=== PATIENT | female | born 1955 | race Caucasian/White ===

== ENCOUNTER 2018-05-09 19:38 | Emergency (ER) | payer BC, SELFPAY ==
[2018-05-09 19:49] VITALS: PULSE 59; RESP 16; TEMP 38.6; O2SAT 96
--- NOTE | 2018-05-09 20:04 | W.ED.GENAD ---
Discharge Plan Disposition Patient Disposition: HOME Condition: Fair Discharge Details Chief Complaint: Cellulitis Clinical Impression: Cellulitis Primary Care Provider: Kalpesh Shelby ED Provider: Chinyere Radford Home Meds and New Rx's Prescriptions: New cephalexin [Keflex] 500 mg capsule 500 mg PO QID Qty: 40 RF: 0 Continue omega-3 fatty acids 1,000 MG capsule 1,000 mg PO DAILY RF: 0 [id number] C-Mn [Glucosamine-Chondroitin Complx] 1 EACH tablet 1 ea PO DAILY RF: 0 magnesium amino acid chelate 100 MG tablet 100 mg PO RF: 0 acetaminophen [Mapap Extra Strength] 500 MG tablet 1,000 mg PO Q8H PRNRF: 0 ibuprofen 600 MG tablet 600 mg PO TID PRN PRNRF: 0 Discharge Instructions Instructions: Cellulitis (ED) Additional Instructions: Encourage hydration. Tylenol and/or ibuprofen as needed for fever or discomfort. Please take Keflex as prescribed. We will contact you with any pertinent results from pending cultures. Please follow-up with interventional radiology on Friday to discuss current situation and follow-up. Please keep upcoming follow-up appointment. If you develop increased pain, redness, change in discharge, pain with walking, or other new/worsening symptoms please seek care urgently once again Referrals: Kalpesh Shelby MD [Primary Care Provider] - Discharge Data Discharge Date/Time-TO BE ENTERED AT DEPARTURE: 05/09/18 23:19 Medical Decision Making Patient is 62-year-old female, accompanied by her , with chief complaint of fever and left lateral leg pain. Patient was in an accident a few months ago by a try a degloving of the muscle. Since that time she has had drain in place by interventional radiology and along the lateral aspect of the left thigh. States that this has been changed weekly, this was kept last week as they are hoping for removal of the bulb soon. She reports they have been instilling the wound with doxycycline and effort to help adhesions form. States she did have one infection which time she was treated with oral Keflex. That was approximately 4 weeks ago. States she been feeling well until around 1600 today at which time she began feeling feverish and it began noting increased discomfort along the lateral aspect of the thigh. On exam, no erythema is noted. However, patient does have warmth over the lateral thigh where she reports she had increased tenderness this afternoon. Does have area of swelling which she reports is typical. It does not feel fluctuant, rather feels like soft tissue swelling. She has full range of motion of the hip. No pain with axial loading rotational movements of the hip. Pain seems fairly superficial and is really only elicited with palpation. She is ambulating well with no signs of discomfort, no antalgic gait. Plan to obtain laboratory evaluation including blood cultures and lactate. Will consult with interventional radiology regarding patient's history and recommendations. Patient will be given Tylenol and will hydrate the patient. Laboratory evaluation without significant abnormality. No leukocytosis. Lactate is normal. Cultures are pending. Consulted with Dr. Dimas Crook with IR at [facility] [place] He Advised the cultures have not been performed historically. He did advise the patient being placed on Keflex once again, felt this worked well for the patient previously. They report that the doxycycline is now for antibiotic use would rather help with closure of her Cavity. He did recommend culturing the fluid from the drain. Discussed the laboratory findings as well as the recommendations by interventional radiology. Reassess the patient's fever, she is noted to be 38.4. We will augment the Tylenol with ibuprofen. Will begin the patient on Keflex. She is received 1 L of fluids here After receiving oral ibuprofen, patient is feeling much improved. She is no longer covered with blankets, is walking about the department. Recheck patient's temperature, she is currently 36.6 Reports she is feeling much improved. She continues to endorse some fatigue but states that she no longer feels feverish. Culture was sent from the drain. Patient received first dose of Keflex here. She will go home with some as the pharmacies are currently closed. Will be given a prescription for the remainder. Advise follow-up with interventional radiology this week, patient Rocael has an appointment. However, she will call department Friday to check in and discuss current symptoms. She was given strict return precautions. We will contact her with culture results as needed. All of her questions and concerns were addressed and she is in agreement with this plan. HPI General Mode of arrival: ambulatory. Date/Time Provider Initiated Documentation: 05/09/18 20:04. Limitations to Documentation: no limitations. Information obtained by: patient and family. History of Present Illness 62 year old F presents to the emergency department with the chief complaint of left lateral hip pain, described as mild, with intensity rated at 2. Quality is described as aching, and is localized to the left and lower extremity. Patient reports no radiation. Patient started experiencing this hour(s) (began at 1600 today) and it has been constant. Immobilization improves symptom(s), Movement worsens symptoms . Patient notes fever/chills and loss of appetite; denies chest pain, cough, diaphoresis, nausea/vomiting, rash and shortness of breath. Patient did receive the following treatments prior to arrival, none Related Data Home Medications Medication Instructions Recorded Confirmed [id number] C-Mn 1 ea PO DAILY 09/29/13 05/09/18 [Glucosamine-Chondroitin Complx] omega-3 fatty acids 1,000 mg PO DAILY 09/29/13 05/09/18 acetaminophen [Mapap Extra 1,000 mg PO Q8H PRN tab 01/12/18 05/09/18 Strength] ibuprofen 600 mg PO TID PRN PRN tab 01/12/18 05/09/18 magnesium amino acid chelate 100 mg PO 01/21/18 cephalexin [Keflex] 500 mg PO QID #40 cap 05/09/18 Previous Rx's Medication Instructions Recorded acetaminophen [Mapap Extra 1,000 mg PO Q8H PRN tab 01/12/18 Strength] ibuprofen 600 mg PO TID PRN PRN tab 01/12/18 cephalexin [Keflex] 500 mg PO QID #40 cap 05/09/18 Allergies Allergy/AdvReac Type Severity Reaction Status Date / Time ragweed pollen Allergy Unknown Unverified 05/09/18 19:59 General Stated Complaint: Cellulitis PABLO: 3 Review of Systems Constitutional Reports as per HPI, Reports chills, Reports fever(s), Denies headache(s) and Reports poor appetite ENT Denies abnormal hearing, Denies otalgia, Denies headache(s), Denies hoarseness, Denies nasal congestion, Denies sinus pain, Denies sinus pressure and Denies sore throat Cardiovascular Reports as per HPI, Denies chest pain, Denies dyspnea and Denies dyspnea on exertion Respiratory Reports as per HPI, Denies cough, Denies dyspnea and Denies dyspnea on exertion Gastrointestinal Reports as per HPI, Denies abdominal pain, Denies change in stool character, Denies nausea and Denies vomiting Musculoskeletal Reports as per HPI and Denies abnormal gait Integumentary/Breasts Reports as per HPI Neurologic Denies abnormal hearing, Denies abnormal movements, Denies abnormal gait and Denies headache(s) PFSH Family History Mother Asthma Father Heart disease Other Diabetes Personal history of malignant neoplasm Medical History basal cells of skin Social History Smoking/Tobacco Use Status: Never Surgical History Colonoscopy Colonoscopy - MAC (12/05/17) Exam Const General: cooperative, not healthy appearing (patient appears chilled, otherwise resting comfortably), comfortable, no acute distress, well developed and well groomed Nutritional Appearance: average body habitus and well nourished Orientation: alert and awake HENMT Ears: hearing grossly normal bilaterally Mouth: oral mucosae normal and moist mucous membranes Eyes General: appearance normal, both eyes and all related structures Resp Effort & Inspection: normal respiratory effort, able to speak in complete sentences and no respiratory distress Auscultation: clear to auscultation bilaterally, no rales, no rhonchi and no wheezes Cardio Rate: regular rate Rhythm: regular rhythm Heart Sounds: S1 normal and S2 normal GI Inspection: normal to inspection and non-distended Palpation: soft, not firm, no guarding, not rigid and nontender Skin General skin exam: no rashes or lesions noted Lesions: no lesions Rashes: no rashes Trauma: no lacerations or abrasions Neuro General: alert, awake and oriented x3 Cognition: normal cognition Speech: speech normal Gait: normal gait Extrem Left lower extremity: full ROM, normal capillary refill, no joint enlargement and hip/thigh Details: tenderness (Patient has tenderness proximal to the area of the drain insertion point. Area is warm to palpation), swelling and normal ROM; abnormal to inspection (Exam of the patient's left lower extremity is significant for a drain emanating from the lateral aspect of the left mid thigh. Around the insertion point appears to have healed well. No erythema, warmth or drainage from around the drain. There is clear joint drainage in the bulb. Patient does quevedo), no cyanosis and no edema Psych Appearance: grossly normal and well kempt Mental Status: mental status grossly normal Speech and Movement: speech and movement normal Mood: congruent mood Course Vital Signs Temperature 38.6 C H 05/09/18 19:49 Pulse 59 L 05/09/18 19:49 Respiratory Rate 16 05/09/18 19:49 Pulse Oximetry 96 05/09/18 19:49 Temperature 38.6 C H 05/09/18 19:49 Temperature Source Temporal Artery Scan 05/09/18 19:49 Pulse 59 L 05/09/18 19:49 Respiratory Rate 16 05/09/18 19:49 Blood Pressure Position Sitting 05/09/18 19:49 Pulse Oximetry 96 05/09/18 19:49 Oxygen Delivery Method Room Air 05/09/18 19:49 Oxygen Flow Rate 0 05/09/18 19:49 Pain Level 2 05/09/18 19:49
--- NOTE | 2018-05-09 20:19 | ED.GENADUL_ITS ---
Discharge Plan Disposition Patient Disposition: HOME Condition: Fair Discharge Details Chief Complaint: Cellulitis Clinical Impression: Cellulitis Primary Care Provider: Kalpesh Shelby ED Provider: Chinyere Radford Home Meds and New Rx's Prescriptions: New cephalexin [Keflex] 500 mg capsule 500 mg PO QID Qty: 40 RF: 0 Continue omega-3 fatty acids 1,000 MG capsule 1,000 mg PO DAILY RF: 0 [id number] C-Mn [Glucosamine-Chondroitin Complx] 1 EACH tablet 1 ea PO DAILY RF: 0 magnesium amino acid chelate 100 MG tablet 100 mg PO RF: 0 acetaminophen [Mapap Extra Strength] 500 MG tablet 1,000 mg PO Q8H PRNRF: 0 ibuprofen 600 MG tablet 600 mg PO TID PRN PRNRF: 0 Discharge Instructions Instructions: Cellulitis (ED) Additional Instructions: Encourage hydration. Tylenol and/or ibuprofen as needed for fever or discomfort. Please take Keflex as prescribed. We will contact you with any pertinent results from pending cultures. Please follow-up with interventional radiology on Friday to discuss current situation and follow-up. Please keep upcoming follow-up appointment. If you develop increased pain, redness, change in discharge, pain with walking, or other new/worsening symptoms please seek care urgently once again Referrals: Kalpesh Shelby MD [Primary Care Provider] - Discharge Data Discharge Date/Time-TO BE ENTERED AT DEPARTURE: 05/09/18 23:19 Medical Decision Making Patient is 62-year-old female, accompanied by her , with chief complaint of fever and left lateral leg pain. Patient was in an accident a few months ago by a try a degloving of the muscle. Since that time she has had drain in place by interventional radiology and along the lateral aspect of the left thigh. States that this has been changed weekly, this was kept last week as they are hoping for removal of the bulb soon. She reports they have been instilling the wound with doxycycline and effort to help adhesions form. States she did have one infection which time she was treated with oral Keflex. That was approximately 4 weeks ago. States she been feeling well until around 1600 today at which time she began feeling feverish and it began noting increased discomfort along the lateral aspect of the thigh. On exam, no erythema is noted. However, patient does have warmth over the lateral thigh where she reports she had increased tenderness this afternoon. Does have area of swelling which she reports is typical. It does not feel fluctuant, rather feels like soft tissue swelling. She has full range of motion of the hip. No pain with axial loading rotational movements of the hip. Pain seems fairly superficial and is really only elicited with palpation. She is ambulating well with no signs of discomfort, no antalgic gait. Plan to obtain laboratory evaluation including blood cultures and lactate. Will consult with interventional radiology regarding patient's history and recommendations. Patient will be given Tylenol and will hydrate the patient. Laboratory evaluation without significant abnormality. No leukocytosis. Lactate is normal. Cultures are pending. Consulted with Dr. Dimas Crook with IR at [facility] [place] He Advised the cultures have not been performed historically. He did advise the patient being placed on Keflex once again, felt this worked well for the patient previously. They report that the doxycycline is now for antibiotic use would rather help with closure of her Cavity. He did recommend culturing the fluid from the drain. Discussed the laboratory findings as well as the recommendations by interventional radiology. Reassess the patient's fever, she is noted to be 38.4. We will augment the Tylenol with ibuprofen. Will begin the patient on Keflex. She is received 1 L of fluids here After receiving oral ibuprofen, patient is feeling much improved. She is no longer covered with blankets, is walking about the department. Recheck patient' s temperature, she is currently 36.6 Reports she is feeling much improved. She continues to endorse some fatigue but states that she no longer feels feverish. Culture was sent from the drain. Patient received first dose of Keflex here. She will go home with some as the pharmacies are currently closed. Will be given a prescription for the remainder. Advise follow-up with interventional radiology this week, patient Rocael has an appointment. However, she will call department Friday to check in and discuss current symptoms. She was given strict return precautions. We will contact her with culture results as needed. All of her questions and concerns were addressed and she is in agreement with this plan. HPI General Mode of arrival: ambulatory . Date/Time Provider Initiated Documentation: 05/09/18 20:04 . Limitations to Documentation: no limitations . Information obtained by: patient and family . History of Present Illness 62 year old F presents to the emergency department with the chief complaint of left lateral hip pain, described as mild, with intensity rated at 2. Quality is described as aching, and is localized to the left and lower extremity. Patient reports no radiation. Patient started experiencing this hour(s) (began at 1600 today) and it has been constant. Immobilization improves symptom(s), Movement worsens symptoms . Patient notes fever/chills and loss of appetite; denies chest pain, cough, diaphoresis, nausea/vomiting, rash and shortness of breath. Patient did receive the following treatments prior to arrival, none Related Data Home Medications Medication Instructions Recorded Confirmed [id number] C-Mn 1 ea PO DAILY 09/29/13 05/09/18 [Glucosamine-Chondroitin Complx] omega-3 fatty acids 1,000 mg PO DAILY 09/29/13 05/09/18 acetaminophen [Mapap Extra 1,000 mg PO Q8H PRN tab 01/12/18 05/09/18 Strength] ibuprofen 600 mg PO TID PRN PRN tab 01/12/18 05/09/18 magnesium amino acid chelate 100 mg PO 01/21/18 cephalexin [Keflex] 500 mg PO QID #40 cap 05/09/18 Previous Rx's Medication Instructions Recorded acetaminophen [Mapap Extra 1,000 mg PO Q8H PRN tab 01/12/18 Strength] ibuprofen 600 mg PO TID PRN PRN tab 01/12/18 cephalexin [Keflex] 500 mg PO QID #40 cap 05/09/18 Allergies Allergy/AdvReac Type Severity Reaction Status Date / Time ragweed pollen Allergy Unknown Unverified 05/09/18 19:59 General Stated Complaint: Cellulitis PABLO: 3 Review of Systems Constitutional Reports as per HPI, Reports chills, Reports fever(s), Denies headache(s) and Reports poor appetite ENT Denies abnormal hearing, Denies otalgia, Denies headache(s), Denies hoarseness, Denies nasal congestion, Denies sinus pain, Denies sinus pressure and Denies sore throat Cardiovascular Reports as per HPI, Denies chest pain, Denies dyspnea and Denies dyspnea on exertion Respiratory Reports as per HPI, Denies cough, Denies dyspnea and Denies dyspnea on exertion Gastrointestinal Reports as per HPI, Denies abdominal pain, Denies change in stool character, Denies nausea and Denies vomiting Musculoskeletal Reports as per HPI and Denies abnormal gait Integumentary/Breasts Reports as per HPI Neurologic Denies abnormal hearing, Denies abnormal movements, Denies abnormal gait and Denies headache(s) PFSH Family History Mother Asthma Father Heart disease Other Diabetes Personal history of malignant neoplasm Medical History basal cells of skin Social History Smoking/Tobacco Use Status: Never Surgical History Colonoscopy Colonoscopy - MAC (12/05/17) Exam Const General: cooperative, not healthy appearing (patient appears chilled, otherwise resting comfortably), comfortable, no acute distress, well developed and well groomed Nutritional Appearance: average body habitus and well nourished Orientation: alert and awake HENMT Ears: hearing grossly normal bilaterally Mouth: oral mucosae normal and moist mucous membranes Eyes General: appearance normal, both eyes and all related structures Resp Effort & Inspection: normal respiratory effort, able to speak in complete sentences and no respiratory distress Auscultation: clear to auscultation bilaterally, no rales, no rhonchi and no wheezes Cardio Rate: regular rate Rhythm: regular rhythm Heart Sounds: S1 normal and S2 normal GI Inspection: normal to inspection and non-distended Palpation: soft, not firm, no guarding, not rigid and nontender Skin General skin exam: no rashes or lesions noted Lesions: no lesions Rashes: no rashes Trauma: no lacerations or abrasions Neuro General: alert, awake and oriented x3 Cognition: normal cognition Speech: speech normal Gait: normal gait Extrem Left lower extremity: full ROM, normal capillary refill, no joint enlargement and hip/thigh Details: tenderness (Patient has tenderness proximal to the area of the drain insertion point. Area is warm to palpation), swelling and normal ROM; abnormal to inspection (Exam of the patient's left lower extremity is significant for a drain emanating from the lateral aspect of the left mid thigh. Around the insertion point appears to have healed well. No erythema, warmth or drainage from around the drain. There is clear joint drainage in the bulb. Patient does quevedo), no cyanosis and no edema Psych Appearance: grossly normal and well kempt Mental Status: mental status grossly normal Speech and Movement: speech and movement normal Mood: congruent mood Course Vital Signs Temperature 38.6 C H 05/09/18 19:49 Pulse 59 L 05/09/18 19:49 Respiratory Rate 16 05/09/18 19:49 Pulse Oximetry 96 05/09/18 19:49 Temperature 38.6 C H 05/09/18 19:49 Temperature Source Temporal Artery Scan 05/09/18 19:49 Pulse 59 L 05/09/18 19:49 Respiratory Rate 16 05/09/18 19:49 Blood Pressure Position Sitting 05/09/18 19:49 Pulse Oximetry 96 05/09/18 19:49 Oxygen Delivery Method Room Air 05/09/18 19:49 Oxygen Flow Rate 0 05/09/18 19:49 Pain Level 2 05/09/18 19:49
[2018-05-09] MEDS: Normal Saline 1,000 ML 1000 ML IV (20:32)
[2018-05-09 20:49] LABS: Abs Immature Grans 0.02 k/cumm (0.0-0.09); Absolute Basophil Count 0.02 k/cumm (0.0-0.2); Absolute Eosinophil Count 0.04 k/cumm (0.0-0.7); Absolute Lymphocyte Count 1.02 k/cumm (1.2-3.4); Absolute Monocyte Count 0.52 k/cumm (0.11-0.7); Absolute Neutrophil Count 8.51 k/cumm (1.2-6.7); Basophils % 0.2; Eosinophils % 0.4; HCT 37.8 % (36.0-46.0); HGB 12.7 g/dL (12.0-15.5); Immature Grans % 0.2; Lymphocytes % 10.1; Mean Corp. HGB Concentration 33.6 g/dL (32.0-36.0); Mean Corpuscular Hemoglobin 29.1 pg (27.0-33.0); Mean Corpuscular Volume 86.5 fL (80-95); Mean Platelet Volume 9.8 fL (8.0-11.0); Monocytes % 5.1; Platelet Count 298 x1000/uL (130-400); RBC 4.37 m/cumm (4.00-5.20); RBC Distribution Width 12.7 % (11.7-14.6); White Blood Cell Count 10.13 k/cumm (4.4-10.8)
[2018-05-09 21:01] VITALS: TEMP 38.6
[2018-05-09] MEDS: Acetaminophen 500 MG TAB 1000 MG PO (21:01)
[2018-05-09 21:06] LABS: Lactate-non-spesis 1.3 mmol/L (0.6-1.4)
[2018-05-09 21:16] VITALS: PULSE 61; RESP 16; TEMP 38.6; O2SAT 97
[2018-05-09 21:21] LABS: ALT 26 U/L (12-78); AST 18 U/L (15-37); Albumin 3.2 g/dL (3.4-5.0); Alkaline Phosphatase 87 U/L (46-116); Anion Gap 12.1 mmol/L (3-11); BUN 16 mg/dL (7-18); Bilirubin, Total 0.4 mg/dL (0.2-1.0); C-Reactive Protein 0.11 mg/dL (0.0-0.3); CO2 24.9 mmol/L (21.0-32.0); CREATININE 0.83 mg/dL (0.55-1.02); Calcium 8.8 mg/dL (8.5-10.1); Chloride 100 mmol/L (98-107); Glucose 128 mg/dL (70-100); Potassium 3.3 mmol/L (3.5-5.1); Sodium 137 mmol/L (136-145); Total Protein 6.8 g/dL (6.4-8.2)
[2018-05-09 21:23] LABS: ESR 23 MM/HR (0-30)
[2018-05-09 21:32] LABS: Prothrombin Time 9.7 sec (9.3-10.8)
[2018-05-09 22:20] VITALS: TEMP 38.2
[2018-05-09] MEDS: Ibuprofen 800 MG TAB PO (22:20)
[2018-05-09] MEDS: Cephalexin 500 MG CAP PO (22:20)
[2018-05-09 22:54] VITALS: BP 120/71; PULSE 81; RESP 16; TEMP 36.6; O2SAT 97
[2018-05-09] MEDS: Cephalexin 500 MG CAP 1000 MG PO (22:55)
== END 2018-05-09 23:19 | disposition home or self-care (01) ==
PROVIDERS: Emergency Provider Physician Assistant; PCP Internal Medicine
DX: L03.114 Cellulitis of left upper limb (principal)
CPT/HCPCS: 36415; 80053; 85652; 87040; 87077; 96360; 96361; 99283; 83605; 85025; 85610; 86140; 87070; 87205

== ENCOUNTER 2018-07-03 00:52 | Outpatient (CLI) | payer BC, SELFPAY ==
--- NOTE | 2018-07-03 14:00 | DI.US_ITS ---
SYMPTOM/DIAGNOSIS: RT OVARIAN CYST, N83.201 PELVIC ULTRASOUND: Comparison is made with 01/23/18. Transabdominal and transvaginal exams were performed. The uterus measures 5.7 by 3.3 by 4.9 cm. The uterus is retroverted. There is heterogeneous myometrium. A few small fibroids are noted. The endometrium measures 3 mm. in thickness. A simple cyst is again noted on the right ovary measuring 4.8 cm. in maximal dimension. The left ovary is unremarkable. There is a dilated left extra renal pelvis. IMPRESSION: Stable simple right ovarian cyst.
== END 2018-07-03 01:12 ==
PROVIDERS: PCP Internal Medicine; Visit Provider Obstetrics & Gynecology
DX: N85.4 Malposition of uterus (principal); N83.291 Other ovarian cyst, right side
CPT/HCPCS: 76830; 76856

== ENCOUNTER 2018-08-10 01:00 | Outpatient (CLI) | payer BC, SELFPAY ==
[2018-08-10] MEDS: Gadoterate meglumine 20 ML VIAL 14 ML IVP (15:28)
--- NOTE | 2018-08-10 15:28 | DI.MRI_ITS ---
SYMPTOM/DIAGNOSIS: ABSCESS LT THIGH, KODAK LESION., H/O RECURRENT FLUID, L02.416 LEFT THIGH MRI: Comparison is made with 03/14/18. T 1 and fat suppressed T 2 axial, sagittal and coronal sequences and post Dotarem fat suppressed T 1 axial, coronal and sagittal sequences were performed. There is scarring in the lateral subcutaneous fat of the thigh likely related to previous drainage procedure. There is a small residual or recurrent fluid collection seen at the interface of the fat and lateral thigh musculature with peripheral enhancement. It measures 9 by 17 mm. in transverse and AP dimension by 9 cm. in length. There is some edema and enhancement in the subcutaneous fat. No abnormal muscle signal or abnormal bone signal is seen. IMPRESSION: Small residual or recurrent abscess in the lateral soft tissues of the thigh.
== END 2018-08-10 01:20 ==
PROVIDERS: PCP Internal Medicine; Visit Provider Internal Medicine
DX: L02.416 Cutaneous abscess of left lower limb (principal)
CPT/HCPCS: 73720

== ENCOUNTER 2019-04-13 06:25 | Day surgery (SDC) | payer BC, SELFPAY ==
--- NOTE | 2019-04-13 06:24 | W.PM.OP ---
Date of service: 04/13/19 Time of Service: 07:29 Operative Note Operative Note DATE OF PROCEDURE: 04/13/19 PRE-OP DIAGNOSIS: Grade 3 internal hemorrhoids POST-OP DIAGNOSIS: same PROCEDURE: Hemorrhoid banding SURGEON: Alexandra Galan ANESTHESIA: none ESTIMATED BLOOD LOSS: 0 PATHOLOGY: none sent COMPLICATIONS: None Patient was transported to: same day Patient's condition: stable Indications: Mrs. Blanco is a pleasant 63 year old female who was seen in the office for discussion of hemorrhoid banding. Risks, benefits, complications of the procedure were reviewed with her. Complications include but are not limited to bleeding, infection, pain, and adverse reaction to the medications. Questions were entertained and answered to her satisfaction and she wished to proceed. No guarantees were given or implied. Findings: 1. Grade 3 internal hemorrhoid at the 3 o'clock position 2. Grade 2 internal hemorrhoids at 6 and 7 o'clock position Procedure Description: After informed consent was obtained in same-day surgery the patient was taken back to the procedure room on a gurney. She was placed in a left decubitus position and monitors were applied. A timeout was done and the patient's name, date of , allergies to medications, procedure to be done were reviewed. Fire risk was assessed. The anoscope was then introduced and the internal hemorrhoids were visualized. One Grade 3 Hemorrhoid was banded in a standard fashion at the 3 oclock position. 2 Grade 2 Hemorrhoids were banded at the 6 and 7 o'clock position. There were no immediate complications. There was no bleeding. The patient tolerated the procedure well and she was taken back to same-day surgery in stable condition.
--- NOTE | 2019-04-13 06:29 | PDOC.DSDIS_ITS ---
Discharge Plan Disposition Patient Disposition: HOME Condition: Good Discharge Details Reason For Visit: Internal hemorrhoids Attending Provider: Alexandra Galan Primary Care Provider: Kalpesh Shelby Home Meds and New Rx's Prescriptions: New lidocaine HCl 2 % jelly in applicator 1 applic TP TID PRN (Reason: pain) Qty: 60 RF: 0 Continued omega-3 fatty acids 1,000 MG capsule 1,000 mg PO DAILY RF: 0 Glucosamine-Chondroitin Complx 1 EACH tablet 1 ea PO DAILY RF: 0 magnesium amino acid chelate 100 MG tablet 100 mg PO RF: 0 acetaminophen [Mapap Extra Strength] 500 MG tablet 1,000 mg PO Q8H PRNRF: 0 ibuprofen 600 MG tablet 600 mg PO TID PRN PRNRF: 0 cholecalciferol (vitamin D3) [Vitamin D3] 1,000 unit Capsule 1,000 unit PO DAILY RF: 0 Discharge Instructions Instructions: Rubber Band Ligation (DC) Additional Instructions: Activity at Home after surgery: 1. Make sure you walk outside at least 4 times per day 2. You should be able to climb a flight of stairs 3. No driving while in pain or taking pain medications Diet, Nutrition, & wound healin. Avoid alcohol until after you are recovered from your surgery 2. Make sure to eat plenty of lean protein (meat, fish, eggs, cottage cheese, beans) 3. Eat a variety of fruits and vegetables. Eat plenty of high fiber foods to avoid constipation. 4. Drink plenty of liquids to stay hydrated and avoid constipation Pain Medications: 1. Alternate Tylenol 650 mg every 6 hours and Ibuprofen 600 mg every 6 h ours as needed. Please alternate Tylenol and Ibuprofen. Take Tylenol and then 3 hours later if needed you can take Ibuprofen. 2. If a narcotic has been prescribed take as directed only for br eakthrough pain For Constipation: 1. Take Milk of Magnesia or MiraLax as needed for constipation Other: 1. You may shower daily. 2. Sitz baths 3-4 times a day as needed for comfort Please call our office if you develop: 1. Fevers >101.5 2. Nausea or Vomiting 3. Worsening pain 4. Redness and thick discharge from the wounds If after hours please call the Hospital at and ask to speak to the on-call surgeon Activity:: Activity as Tolerated Diet:: high Fiber diet Discharge Orders Discharge Orders: Discharge Order (Routine); Ordered 04/13/19 Ordered By: Alexandra Galan DS: Diagnosis Discharge Diagnosis (1) Internal hemorrhoids: Status: Acute
[2019-04-13 06:43] VITALS: BP 147/84; PULSE 48; RESP 16; TEMP 36.1; O2SAT 99
[2019-04-13] MEDS: Acetaminophen 500 MG TAB ×2 (07:00)
[2019-04-13] MEDS: Celecoxib 200 MG CAP (07:01)
[2019-04-13] MEDS: metroNIDAZOLE 500 MG TAB PO (07:11)
== END 2019-04-13 07:55 | disposition home or self-care (01) ==
PROVIDERS: PCP Internal Medicine; Visit Provider Surgery
PROC: (CPT 46221; principal; 2019-04-13 07:30)
DX: K64.2 Third degree hemorrhoids (principal); K64.1 Second degree hemorrhoids
CPT/HCPCS: 46221

== ENCOUNTER 2019-09-10 01:29 | Outpatient (CLI) | payer BC, SELFPAY ==
--- NOTE | 2019-09-10 | DI.US_ITS ---
EXAM: US PELVIS TRANSVAGINAL CLINICAL HISTORY: OVARIAN MASS, N83.29 TECHNIQUE: Transabdominal and transvaginal exams were performed. COMPARISON: CHEST ABD PELVIS WITH CONTRAST from 01/11/2018 US PELVIS TRANSVAGINAL from 07/03/2018 FINDINGS: Parapelvic cysts are noted in the kidneys. The kidneys are normal in size and show normal parenchym al thickness and echogenicity. The uterus is retroverted and measures 6.2 x 3.5 x 4.5 cm. The myome trium is heterogeneous. Small myometrial fibroids are again noted. There has been no change in size or appearance of the previously noted simple cyst of the right ovary. No mural nodules or septation s are seen. The left ovary appears normal. The endometrial stripe now appears thickened at 7 millim eters. There is a question of a polyp within the endometrium. There is a small amount of fluid seen in the cul-de-sac. IMPRESSION: Thickened endometrium with question of a polyp. Stable right ovarian cyst. DATA REPOSITORY:
== END 2019-09-10 01:49 ==
PROVIDERS: PCP Internal Medicine; Visit Provider Internal Medicine
DX: N83.291 Other ovarian cyst, right side (principal); D25.9 Leiomyoma of uterus, unspecified; R93.89 Abnormal findings on diagnostic imaging of other specified body structures; N84.0 Polyp of corpus uteri
CPT/HCPCS: 76830; 76856

== ENCOUNTER 2019-09-10 01:29 | Outpatient (CLI) | payer BC, SELFPAY ==
--- NOTE | 2019-09-10 08:00 | DI.MAMMO_ITS ---
EXAM: MAMMO SCREENING CLINICAL HISTORY: screening,z12.39 TECHNIQUE: Mammograms were interpreted according to the usual protocol including computer analysis w ROV[employer] CAD system, tomosynthesis and C-view imaging. COMPARISON: 2009 through 2016 FINDINGS: The breasts are composed of scattered fibroglandular densities, Breast Density category B. No suspicious masses or suspicious microcalcifications are seen. No skin thickening or abnormal axillary lymph nodes are seen. There has been no significant change from prior exams. IMPRESSION: ACR BIRADS Category 1, negative mammogram. Yearly screening mammography is recommended. Breast Density Category B, scattered fibroglandular densities.
== END 2019-09-10 01:49 ==
PROVIDERS: PCP Internal Medicine; Visit Provider Nurse Practitioner Family
DX: Z12.31 Encounter for screening mammogram for malignant neoplasm of breast (principal)
CPT/HCPCS: 77063; 77067

== ENCOUNTER 2019-09-10 10:38 | Outpatient (REF) | payer BC, SELFPAY ==
--- NOTE | 2019-09-10 10:15 | PAPFT_PTH ---
PATIENT: Sylvia Blanco LOC: [facility] U#:[id number] AGE/SX: 64/F ROOM: RE09/10/[address]: IVON Baig : 1955 BED: DIS: 09/10/2019 SPEC #: [id number] RECD: 09/10/19 13:12 STATUS: DACIA REJony #: [id number] AMARILYS: 09/10/19 10:[address]: Kathrine Phipps DEPT: [facility] Cytology RECD BY: Blanche Larsen ENTERED: 09/10/19 13:13 SP TYPE: PAPFT OTHR DR: Kalpesh Shelby Tissues: 1 - CX/ENDOCX FOR PAP SMEARS Procedures: PAP THIN PREP/UVM Screening HPV DNA PROBE Comments: [id number]
== END 2019-09-10 10:58 ==
LOC: LBN 10:38
PROVIDERS: PCP Internal Medicine; Visit Provider Nurse Practitioner Family
DX: Z12.4 Encounter for screening for malignant neoplasm of cervix (principal); Z11.51 Encounter for screening for human papillomavirus (HPV)
CPT/HCPCS: 88142; 87624

== ENCOUNTER 2019-09-24 14:10 | Outpatient (REF) | payer BC, SELFPAY ==
--- NOTE | 2019-09-24 14:00 | ENDOMET_PTH ---
PATIENT: Sylvia Blanco LOC: [facility] U#:[id number] AGE/SX: 64/F ROOM: RE09/24/[address]: Mihai Perdomo MD : 1955 BED: DIS: 09/24/2019 SPEC #: [id number] RECD: 09/24/19 17:05 STATUS: DACIA REQ #: [id number] AMARILYS: 09/24/19 14:[address]: Mihai Perdomo DEPT: Surgical Specimen RECD BY: Blanche Larsen ENTERED: 09/24/19 17:06 SP TYPE: Endomet OTHR DR: Kalpesh Shelby Tissues: 1 - ENDOMETRIUM BX/CURRETTE 2 - CERVICAL BIOPSY Procedures: GROSS AND MICRO LEVEL 4 Comments: [id number]
== END 2019-09-24 14:30 ==
LOC: LBN 14:10
PROVIDERS: PCP Internal Medicine; Visit Provider Obstetrics & Gynecology
DX: N84.0 Polyp of corpus uteri (principal); N85.8 Other specified noninflammatory disorders of uterus
CPT/HCPCS: 88305

== ENCOUNTER 2021-04-03 09:04 | Outpatient (REF) | payer BC, SELFPAY ==
[2021-04-03 14:25] LABS: Calculated LDL 169 mg/dL (<100); Cholesterol 264 mg/dL (<200); Glucose 94 mg/dL (74-106); HDL Cholesterol 84 mg/dL (40-60); Triglyceride 55 mg/dL (<150)
== END 2021-04-03 09:05 | disposition home or self-care (01) ==
LOC: NCHCN 09:04
PROVIDERS: PCP Internal Medicine; Visit Provider Family Medicine
DX: R00.1 Bradycardia, unspecified (principal); Z00.00 Encounter for general adult medical examination without abnormal findings
CPT/HCPCS: 80061; 82947

== ENCOUNTER 2021-08-28 14:55 | Outpatient (REF) | payer BC, SELFPAY | END 2021-08-28 14:56 | disposition home or self-care (01) | LOC: LBN 14:55 | PROVIDERS: PCP Internal Medicine; Visit Provider Surgery | DX: T81.49XA Infection following a procedure, other surgical site, initial encounter (principal) | CPT/HCPCS: 87077; 87070; 87205 ==

== ENCOUNTER 2021-09-01 00:28 | Outpatient (RCR) | payer BC, SELFPAY ==
[2021-08-30] MEDS: cefTRIAXone 2 GM/50 ML BAG IVPB (14:31)
[2021-08-30] MEDS: Normal Saline Flush 10 ML SYR IVP (14:31)
[2021-08-31] MEDS: cefTRIAXone 2 GM/50 ML BAG IVPB (13:12)
[2021-08-31] MEDS: Normal Saline Flush 10 ML SYR IVP (13:53)
[2021-09-01] MEDS: Normal Saline Flush 10 ML SYR IVP (13:07)
[2021-09-01] MEDS: cefTRIAXone 2 GM/50 ML BAG IVPB (13:07)
--- NOTE | 2021-09-01 16:37 | W.PM.PROGNOT ---
Date of Service Date of service: 09/01/21 Time of Service: 13:37 Assessment and Plan Assessment and plan (1) Cellulitis: Status: Acute Assessment and plan: -Significantly improved compared to demarcated area of previous erythema -No purulent drainage, wound bed appears clean -Resume PO antibiotics, continue daily dressing changes with wet to dry saline/gauze -Followup appointment scheduled for Friday -Call sooner for questions/concerns/changes in wound appearance or fevers Subjective Subjective Patient reports: no new complaints, feels better and afebrile Exam Const General: cooperative, healthy appearing, comfortable and no acute distress Skin General skin exam: turgor normal, erythema (very mild, significantly improved), no eschars, no fluctuance and no induration Wounds: wounds noted (left upper arm, no purulent drainage, wound bed clean) Neuro General: patient alert, patient awake and patient oriented x3 Cranial Nerves: CN's II-XI intact bilaterally
== END 2021-09-03 23:59 | disposition home or self-care (01) ==
LOC: INF 00:28
PROVIDERS: PCP Internal Medicine; Visit Provider Surgery
DX: L03.90 Cellulitis, unspecified (principal)
CPT/HCPCS: 96365

== ENCOUNTER → 2022-06-06 02:31 | Outpatient (CLI) | payer BC, SELFPAY ==
--- NOTE | 2022-06-06 11:45 | DI.MAMMO_ITS ---
Exam(s) MAMMO SCREENING EXAM: MAMMO SCREENING CLINICAL HISTORY: SCREENING, Z12.31 TECHNIQUE: Mammograms were interpreted according to the usual protocol including computer analysis w [employer]ting CAD system, tomosynthesis and C-view imaging. COMPARISON: FINDINGS: The breasts are of moderate density with fairly symmetrical distribution of fibroglandular tissue. N o dominant mass or clumped microcalcification is identified in either breast. The current examinatio n is compared with previous examination of September 2019 and there has been no gross interval change mary earance comparison with the prior studies. IMPRESSION: No specific evidence of malignancy at this time. Routine screening examinations are suggested at yea rly intervals in this age group according to the ACS ACR guidelines. BI-RADS Category 1 - Negative Breast Density - Category B - Scattered areas of fibroglandular density
== END ==
PROVIDERS: PCP Internal Medicine; Visit Provider Family Medicine
DX: Z12.31 Encounter for screening mammogram for malignant neoplasm of breast (principal)
CPT/HCPCS: 77063; 77067

== ENCOUNTER 2022-08-08 14:59 | Outpatient (REF) | payer MEDICARE, SELFPAY ==
[2022-08-08 14:50] LABS: Anion Gap 6.9 mmol/L (3-11); BUN 20 mg/dL (7-18); CO2 29.1 mmol/L (21.0-32.0); Calcium 9.3 mg/dL (8.5-10.1); Chloride 106 mmol/L (98-107); Estimated GFR 62.52 (mL/min/1.73m2); Glucose 76 mg/dL (74-106); Potassium 4.8 mmol/L (3.5-5.1); Sodium 142 mmol/L (136-145)
== END 2022-08-08 15:00 | disposition home or self-care (01) ==
LOC: NCHCN 14:59
PROVIDERS: PCP Internal Medicine; Visit Provider Family Medicine
DX: I49.9 Cardiac arrhythmia, unspecified (principal); G47.62 Sleep related leg cramps; Z00.00 Encounter for general adult medical examination without abnormal findings
CPT/HCPCS: 80048; 83735

== ENCOUNTER 2022-12-05 01:37 | Outpatient (CLI) | payer MEDICARE, SELFPAY ==
--- NOTE | 2022-12-05 | DI.DEXA_ITS ---
Exam(s) XR DEXA BONE DENSITY W/WO SAL EXAM: XR DEXA BONE DENSITY W/WO SAL CLINICAL HISTORY: PREVENTATIVE CARE,Z00.00,SCREENING FOR OSTEOPOROSIS IN POSTMENOPAUSAL WOMAN TECHNIQUE: Routine DEXA evaluation of the lumbar spine, hip, or forearm. COMPARISON: No exams were available for comparison FINDINGS: Performed on a Hologic unit. Lateral image: No compression fracture evident. Lumbar Spine total T-score: -1.2 Hip total T-score:-1.6 Independent reading at the level of the femoral neck yields T-score of -2.2 Forearm total T-score: -2.9 IMPRESSION: Bone mineral density measures in the osteopenia range. Fracture risk is moderate. Note: Any spine fracture indicates 5x risk for subsequent spine fracture and 2x risk for subsequent h ip fracture. World Health Organization criteria for BMD interpretation classify patients: Normal...... T- Score at or above -1.0 Osteopenic... T- Score between -1.0 and -2.5 Osteoporosis... T-Score at or below -2.5
== END 2022-12-05 01:57 ==
LOC: DI 01:38
PROVIDERS: PCP Internal Medicine; Visit Provider Family Medicine
DX: Z78.0 Asymptomatic menopausal state (principal); Z13.820 Encounter for screening for osteoporosis
CPT/HCPCS: 77080

== ENCOUNTER 2024-05-31 11:33 | Outpatient (CLI) | payer MEDICARE, OTHER, SELFPAY ==
--- NOTE | 2024-05-31 | DI.RAD_ITS ---
Exam(s) XR CHEST 2V PA LATERAL EXAM: XR CHEST 2V PA LATERAL CLINICAL HISTORY: R05.9 Cough TECHNIQUE: 2D digital imaging was performed of the chest. Two images were obtained. PA and lateral views were obtained. COMPARISON: No exams were available for comparison FINDINGS: MEDIASTINUM: Normal. HEART: Normal. PULMONARY VASCULATURE: Normal. LUNGS: The lungs are hyperinflated suggesting underlying COPD. No focal consolidating infiltrates ar e seen. PLEURAL SPACE: No pleural effusion or pneumothorax. BONE:Within normal limits for the patient's age. OTHER FINDINGS:Normal. IMPRESSION: No focal consolidation. No acute pulmonary process. DATA REPOSITORY: RADIATION DOSE DELIVERED:
== END 2024-05-31 11:53 ==
PROVIDERS: PCP Internal Medicine; Visit Provider Family Medicine
DX: R05.9 Cough, unspecified (principal)
CPT/HCPCS: 71046

== ENCOUNTER 2024-06-01 21:45 | Outpatient (REF) | payer MEDICARE, OTHER, SELFPAY ==
[2024-06-01 21:54] LABS: HCT 42.1 % (36.0-46.0); HGB 13.8 g/dL (11.2-15.7); MCH 29.2 pg (27.0-33.0); MCHC 32.8 % (32.0-36.0); MCV 89 fL (80-95); MPV 10.1 fL (8.0-11.0); Platelet Count 394 10^3/uL (130-400); RBC 4.73 10^6/uL (3.93-5.22); RDW 12.5 % (11.7-14.6); RDW-SD 41.1 fL
[2024-06-01 22:02] LABS: ALT 22 U/L (14-59); AST 15 U/L (15-37); Albumin 3.5 g/dL (3.4-5.0); Alkaline Phosphatase 125 U/L (46-116); BUN 17 mg/dL (7-18); Bilirubin, Total 0.21 mg/dL (0.2-1.0); CREATININE 0.9 mg/dL (0.55-1.02); Calcium 9.5 mg/dL (8.5-10.1); Chloride 101 mmol/L (98-107); Estimated GFR 70.51 (mL/min/1.73m2); Glucose 102 mg/dL (74-106); LDL CHOLESTEROL 146 mg/dL (<100); Potassium 4.5 mmol/L (3.5-5.1); Sodium 135 mmol/L (136-145); Total Protein 7.3 g/dL (6.4-8.2)
== END 2024-06-01 21:46 | disposition home or self-care (01) ==
LOC: NCHCN 21:45
PROVIDERS: PCP Family Medicine; Visit Provider Family Medicine
DX: R05.9 Cough, unspecified (principal); R00.1 Bradycardia, unspecified
CPT/HCPCS: 80053; 83721; 85027

== ENCOUNTER 2024-07-01 00:09 | Outpatient (CLI) | payer MEDICARE, OTHER, SELFPAY ==
--- NOTE | 2024-07-01 | DI.MAMMO_ITS ---
Exam(s) MAMMO SCREENING EXAM: MAMMO SCREENING CLINICAL HISTORY: Z12.31 Screening TECHNIQUE: Mammograms were interpreted according to the usual protocol including computer analysis w [employer] CAD system, tomosynthesis and C-view imaging. COMPARISON: 2016 through 2021 FINDINGS: The breasts are composed of scattered fibroglandular densities, Breast Density category B. No suspicious masses or suspicious microcalcifications are seen. No skin thickening or abnormal axillary lymph nodes are seen. There has been no significant change from prior exams. IMPRESSION: BI-RADS Category 1, Negative mammogram Yearly screening mammography is recommended. Breast Density - Category B, scattered fibroglandular densities. A negative radiographic report should not delay biopsy if a dominant or clinically suspicious mass is present. Up to ten percent of cancers are not identified on mammography. A negative report may reinforce clinical impression. Adenosis and dense breasts may obscure an underlying neoplasm. False positive reports average 6 to 10%. Patient will receive a letter notifying them of these results.
--- NOTE | 2024-07-01 12:30 | DI.US_ITS ---
APPROVED REPORT EXAM: Comprehensive 2D, Doppler, and color-flow Echocardiogram Patient Location: Out-Patient Ladle Pourer: Jaquan Cassidy RDCS (AE) Indications: Cardiac murmur Other Information Study Quality: Good Conclusion Normal left ventricular wall thickness and chamber size. Ejection fraction is 65 percent. Wall eliot on is normal Normal right ventricular size and function Mildly dilated left atrium. Normal right atrial size There are no structural valvular abnormalities Trace aortic regurgitation. Mild mitral regurgitation Estimated right ventricular systolic pressure is 34 mmHg Wall motion Left Ventricle The left ventricle is normal size. The left ventricular systolic function is normal. The left ventric ular ejection fraction is within the normal range. There is normal left ventricular wall thickness. T here is normal LV segmental wall motion. There is no ventricular septal defect visualized. LVEF is 65 %. Right Ventricle The right ventricle is normal size. The right ventricular systolic function is normal. Atria Left atrium is mildly dilated. The right atrium size is normal. The interatrial septum is intact with no evidence for an atrial septal defect. Aortic Valve The aortic valve is normal in structure. Aortic valve is trileaflet. There is no aortic valvular sten osis. Trace aortic regurgitation. Mitral Valve The mitral valve is normal in structure. No evidence of mitral valve stenosis. Mild mitral regurgitat ion. Tricuspid Valve The tricuspid valve is normal in structure. There is no tricuspid valve stenosis. Trace tricuspid reg urgitation. The RVSP is 34.4 mmHg. Pulmonic Valve The pulmonary valve is normal in structure. There is no pulmonic valvular stenosis. Trace pulmonic re gurgitation. Great Vessels The aortic root is normal in size. The ascending aorta is normal Aortic arch is normal in caliber. Th e IVC is dilated. The IVC collapses <50% with inspiration. Pericardium There is no pericardial effusion. 2D Dimensions IVSD d PLAX 1.04 cm F: 0.6-1.0 Ao Root d 2.72 cm F: 2.7 - 3.3 LVPW d PLAX 0.99 cm F: 0.6 - 1.0 Ao Asc Diam d 3.26 cm F: 2.3 - 3.1 LVID d PLAX 4.98 cm F: 3.8 - 5.2 IVC Diam exp d SLAX 3.1 cm LVDs 3.21 cm F: 2.2 - 3.5 LV EF Teichholz 64.9 % FS 35.68 % LV EDV (Teich) 117.4 mL LV ESV (Teich) 41.1 mL Stroke Vol Index (Teich) 44.33 M-Mode TAPSE 3.14 cm (M/F) >1.7 Auto EF LV EDV A4C 123.7 mL LV EDV A2C 110.8 mL LV EDV BP 118.6 mL LV ESV A4C 44.7 mL LV ESV A2C 38.4 mL LV ESV BP 41.6 mL LVEF(%) A4C 63.9 % LVEF(%) A2C 65.4 % LVEF(%) BP 65.0 % LV SV A4C 79.0 ml LV SV A2C 72.4 ml LV SV BP 77.1 ml LV CO A4C 3.5 L/min LV CO A2C 3.1 L/min LV CO BP 3.3 L/min HR A4C 44.82 BPM HR A2C 43.27 BPM LV EDV Index (BP) LA Volume LA Length A4C 5.2 cm LA Length A2C 4.2 cm LA Area A4C s 20.33 cm2 LA Area A2C s 13.83 cm2 LA Vol A4C A-L 67.63 mL LA Vol A2C A-L 38.83 mL LA Vol Biplane A-L 57.1 mL LA Vol/BSA A4C A-L LA Vol/BSA A2C A-L LA Vol/BSA BP A-L 33.2 mL/m2 LA Vol A4C MOD 65.6 mL LA Vol A2C MOD 36.3 mL LA Vol BP MOD 54.2 mL RA Volume RA Area A4C 9.6 cm2 RA ESV A4C (A-L) 22.5mL RA Vol/BSA A4C A-L RA Length A4C 3.5 cm RA ESV A4C (MOD) 20.6mL LV Diastology MV E' medial 0.098 (>0.07 m/s) MV E Vmax 0.72 (0.4-1.3 m/s) MV E/E' MED 7.33 (<14) MV A Vmax 0.65 (0.4-1.3 m/s) MV E' lateral 0.051 (>0.1 m/s) E/A Ratio 1.1 MV E/E' LAT 14.08 (<14) MV E' Average 0.074 m/s MV E/E'(average) 9.64 Aortic Valve AoV Vmax 1.50 m/s LVOT Vmax 1.14 m/s AoV Peak Grad 24.0 mmHg LVOT Peak Grad 5.2 mmHg AoV Area (Vmax) 1.94 cm2 LVOT VTI 0.297 m AoV VTI 0.343 m LVOT Mean Grad 2.8 mmHg AoV Mean Keith. 0.94 m/s LVOT SV 75.09 mL AoV Mean Grad 4.2 mmHg LVOT Diam s 1.75 cm AoV Area (VTI) 2.19 cm2 AV Regurg Peak Gr. 8.95 mmHg Velocity Ratio 0.76 AR Decel Armstrong 1.2m/sec2 AR DT 2677 msec AR PHT 776 msec AR Vmax 3.12 m/s Mitral Valve MV DT 153 (160-240 msec) Pulmonary Valve PV Vmax 1.06 (0.5-1.5 m/s) RVOT Vmax 0.73 m/s PV Peak Grad 4.5 mmHg RVOT Peak Gr. 2.1 mmHg PV Mean Keith 0.71 m/s RVOT VTI 0.161 m PV Mean Grad 2.3 mmHg RVOT Mean Gr. 1.3 mmHg Tricuspid Valve RA Pressure 3.00 mmHg TR Vmax 2.80 m/s TR Peak Grad 31.3 mmHg RVSP (TR) 34.4 mmHg
== END 2024-07-01 00:29 ==
PROVIDERS: PCP Family Medicine; Visit Provider Family Medicine
DX: R01.1 Cardiac murmur, unspecified (principal); I34.0 Nonrheumatic mitral (valve) insufficiency; I35.1 Nonrheumatic aortic (valve) insufficiency; Z12.31 Encounter for screening mammogram for malignant neoplasm of breast
CPT/HCPCS: 77063; 77067; 93306